=== PATIENT | male | born 1970 | race Caucasian/White ===

== ENCOUNTER 2017-01-29 16:14 | Emergency (ER) | payer MEDICAID ==
[~2017-01-29] VITALS: Ht 152.4 cm; Wt 80.0 kg
[2017-01-29 16:19] VITALS: Ht 152.4 cm; Wt 80.0 kg
[2017-01-29] MEDS ORDERED: CEPH-443 PO (17:31)
[2017-01-29] MEDS ORDERED: SULF1TAB31 PO (17:31)
[2017-01-29] MEDS ORDERED: HYDR-906 PO (17:31)
[2017-01-29] MEDS ORDERED: NAPR-688 PO (17:31)
--- NOTE | 2017-01-29 17:54 | ERD ---
ER Documentation Chief Complaint Date/Time DATE: 01/29/17 TIME: 17:33 Chief Complaint left leg wound, seen 2 weeks ago did not get px, not gotten worse HPI This 46-year-old male presents for area of redness surrounding where he scraped himself with a bike pedal 2 weeks ago. He initially gone to [facility] where they gave him medication he could not fill for insurance reasons. He still has the same surrounding erythema although it has spread outwards a little bit from the 3 lesions. No fevers or chills. Does have mild pain at the sites. ROS All systems reviewed and are negative except as per history of present illness. Medications Home Meds Active Scripts Hydrocodone/Acetaminophen (Ransom 5-325 Tablet) 1 Each Tablet, 1 EACH PO Q8 for SEVERE PAIN LEVEL 7-10, #12 TAB Prov:VJ OVALLES DO 01/29/17 Naproxen* (Naproxen*) 500 Mg Tablet, 500 MG PO BID Y for PAIN, #20 TAB Prov:VJ OVALLES DO 01/29/17 Cephalexin* (Keflex*) 500 Mg Capsule, 500 MG PO Q6, #40 CAP Prov:VJ OVALLES DO 01/29/17 Sulfamethoxazole/Trimethoprim* (Bactrim Ds* Tablet) 1 Each Tablet, 1 TAB PO BID for 10 Days, TAB Prov:VJ OVALLES DO 01/29/17 Physical Exam Vitals Vital Signs Date Time Temp Pulse Resp B/P Pulse Ox O2 Delivery O2 Flow Rate FiO2 01/29/17 16:19 98.1 90 18 140/78 99 Physical Exam Const: [] No distress Head: Atraumatic Eyes: Normal Conjunctiva Skin: No petechiae or rashes Ext: No cyanosis, , Left lateral escobar with 3 scabbed abrasions with mild surrounding erythema and mild calor. There is no confluence of the lesions other closely spaced. Distal pulses intact. Psych: Normal Mood and Affect Procedures/MDM Scabs with mild surrounding cellulitis secondary to nontreatment. We will discharge the patient with Bactrim and Keflex, naproxen and Ransom. I told the each of these medications is very cheap and especially Bactrim and Keflex. Even if his insurance can pay for it he should buy otherwise he is infection could progress. After 2 weeks it is still mild infection I do not anticipate he will have to return for antibiotics but told him this may be a possibility if after a course of antibiotics is not completely healed. Primary care follow- up in 2 3 days and return precautions. Departure Diagnosis: Primary Impression: Cellulitis of leg without foot, right Condition: Stable Patient Instructions: Cellulitis Referrals: [facility] YOU HAVE RECEIVED A MEDICAL SCREENING EXAM AND THE RESULTS INDICATE THAT YOU DO NOT HAVE A CONDITION THAT REQUIRES URGENT TREATMENT IN THE EMERGENCY DEPARTMENT. FURTHER EVALUATION AND TREATMENT OF YOUR CONDITION CAN WAIT UNTIL YOU ARE SEEN IN YOUR DOCTORS OFFICE WITHIN THE NEXT 1-2 DAYS. IT IS YOUR RESPONSIBILITY TO MAKE AN APPOINTMENT FOR FOLOW-UP CARE. IF YOU HAVE A PRIMARY DOCTOR --you should call your primary doctor and schedule an appointment IF YOU DO NOT HAVE A PRIMARY DOCTOR YOU CAN CALL OUR PHYSICIAN REFERRAL HOTLINE AT IF YOU CAN NOT AFFORD TO SEE A PHYSICIAN YOU CAN CHOSE FROM THE FOLLOWING [facility] [address] [facility]. [facility] [address] [facility] [facility] [address] [facility] [facility] [address] [facility]. [facility] [address] [facility]. [facility]. [address] Additional Instructions: Call your primary care doctor TOMORROW for an appointment during the next 2-3 days.See the doctor sooner or return here if your condition worsens before your appointment time.me. VJ OVALLES DO Jan 29, 2017 17:47
== END 2017-01-29 18:14 | disposition home or self-care (01) ==
LOC: FTE 16:14
DX: L03.115 Cellulitis of right lower limb (principal)
CPT/HCPCS: 99284